=== PATIENT | female | born 2005 | race Caucasian/White ===

== ENCOUNTER 2023-01-31 21:24 | Emergency (ER) | payer OTHER ==
[~2023-01-31] VITALS: Ht 172.7 cm; Wt 90.7 kg
[2023-01-31 21:45] VITALS: BP 115/60
--- NOTE | 2023-01-31 21:48 | NUR ---
TO LOBBY A/W BED AMBULATORY
--- NOTE | 2023-02-01 00:50 | NUR ---
CALLED TO ROOM, NO ANSWER
--- NOTE | 2023-02-01 01:05 | NUR ---
CALLED TO ROOM, NO ANSWER
== END 2023-02-01 00:50 | disposition left against medical advice (07) ==
LOC: MED 21:24
DX: R07.9 Chest pain, unspecified (principal); Z53.21 Procedure and treatment not carried out due to patient leaving prior to being seen by health care provider
CPT/HCPCS: 93005; 99281